=== PATIENT | female | born 1990 | race Hispanic/Latino ===

== ENCOUNTER 2017-06-24 11:38 | Outpatient (CLI) | payer OTHER ==
[~2017-06-24] VITALS: Ht 162.6 cm; Wt 71.7 kg
[2017-06-24 13:04] VITALS: BP 124/87
== END 2017-06-24 12:05 | disposition home or self-care (01) ==
LOC: PREOP 11:38
PROVIDERS: ATTEND Surgery
DX: Z01.818 Encounter for other preprocedural examination (principal); Z11.2 Encounter for screening for other bacterial diseases; K40.90 Unilateral inguinal hernia, without obstruction or gangrene, not specified as recurrent
CPT/HCPCS: 87081

== ENCOUNTER → 2017-07-01 | Day surgery (SDC) | payer SELFPAY ==
[~2017-07-01] VITALS: Ht 162.6 cm; Wt 71.7 kg
[~2017-07-01] MED LIST: BUPIVACAINE 0.5% 30 ML (SENSORCAINE) VIAL ONE; DEXAMETHASONE 10 MG/ML (DECADRON) 1 ML VIAL ONE; DOCU-143 PO; GLYCOPYRROLATE 0.2 MG/ML (ROBINUL) 2 ML VIAL ONE; HYDR-3812 PO; HYDROcodone/APAP 5 MG/325 MG (LORTAB) TAB PO PRN; HYDROmorphone (DILAUDID) 2 MG/ML VIAL IVP PRN; LACTATED RINGERS 1,000 ML IV PRN; LIDOCAINE 1% INJ 20 ML (XYLOCAINE) VIAL ONE; LIDOCAINE PF 2% 5 ML (XYLOCAINE) VIAL ONE; MEPERIDINE (DEMEROL) INJ 50 MG/ML IVP PRN; MIDAZOLAM 2 MG/2 ML (VERSED) VIAL ONE; NEOSTIGMINE (BLOXIVERZ ) 1 MG/1ML 10 ML VIAL ONE; ONDANSETRON 4 MG/2 ML (SDV) Z0FRAN IVP PRN; ONDANSETRON 4 MG/2 ML (SDV) Z0FRAN ONE; ROCURONIUM 50 MG/5 ML (ZEMURON) VIAL IV ONE; SEVOFLURANE (ULTANE) 15 ML INHAL SOLN ONE; ceFAZolin 2 GM/50 ML NS 50 ML IV ONE; ceFAZolin 2 GM/NS 50 ML IV ONE; fentaNYL INJECTION 100 MCG/2 ML AMP ONE; proPOfol 200 MG/20 ML (DIPRIVAN) VIAL IV ONE
[2017-07-01 08:46] VITALS: BP 126/89
--- NOTE | 2017-07-01 09:18 | Progress Note-Pre Operative ---
Pre-Operative Progress Note H&P Reviewed The H&P was reviewed, patient examined and no changes noted. Date Seen by Provider: Jul 01, 2017 Time Seen by Provider: 08:30 Date H&P Reviewed: Jul 01, 2017 Time H&P Reviewed: 08:30 Pre-Operative Diagnosis: left inguinal hernia MARIMAR LINO DO Jul 01, 2017 09:18
--- NOTE | 2017-07-01 10:09 | Progress Note-Post Operative ---
Post-Operative Progess Note Surgeon (s)/Auto Battery Builder (s) Surgeon MARIMAR LINO DO Auto Battery Builder: Dr. Cuenca Pre-Operative Diagnosis left inguinal hernia Post-Operative Diagnosis indirect left inguinal hernia Procedure & Operative Findings Date of Procedure 07/01/17 Procedure Performed/Findings open left inguinal hernia repair c mesh Anesthesia Type general Estimated Blood Loss Estimated blood loss (mL): minimal Specimens/Packing Specimens Removed hernia sac MARIMAR LINO DO Jul 01, 2017 10:09
--- NOTE | 2017-07-01 10:12 | Discharge Inst-Simple/Standard ---
Discharge Inst-Standard Discharge Medications New, Converted or Re-Newed RX: RX on Chart Patient Instructions/Follow Up Plan of Care/Instructions/FU: 2-3 weeks [place] Activity as Tolerated: No Discharge Diet: Regular Diet Other Inst to Patient Follow up Appt: Make appointment for 2-3 week. Instructions: No lifting greater than 10 pounds. No strenuous activity. May shower in 24 hours, no tub bath or soaking. Use incentive spirometer at home as directed. No Smoking Skin/Wound Care: May remove bandages. You have special glue over incision it will fall off on its own. Symptoms to Report: Appetite Changes, Extremity Discoloration, Numbness/Tingling, Swelling Increased , Bleeding Excessive, Eyesight Changes, Pain Increased, Urine Color Change, Constipation(Persistent), Fever over 101 degree F, Pain/Pressure in chest, Urinating Difficulty, Cough Up/Vomit Blood, Heart Beat Irreg/Pounding, Pain/ Pressure in jaw, Vaginal Bleeding Increase, Cramps in feet or legs, Lightheadedness, Pain/Pressure in shoulder, Diarrhea(Persistent), Memory Changes Suddenly, Questions/Concerns, Weight gain consecutive days, Dizziness/ Fainting, Nausea/Vomiting, Shortness of Breath, Weight gain over 2 pounds If questions or concerns contact your physician Or seek help at emergency department. MARIMAR LINO DO Jul 01, 2017 10:12
[2017-07-01] MEDS: morphine INJ 10 MG/ML 1ML (SYR OR VIAL) IVP PRN ×2 (10:44→10:49)
--- NOTE | 2017-07-01 11:22 | Anesthesia-General Post-Op ---
General Patient Condition Mental Status/LOC: Same as Preop Cardiovascular: Satisfactory Nausea/Vomiting: Absent Respiratory: Satisfactory Pain: Controlled Complications: Absent Post Op Complications Complications None Follow Up Care/Instructions Patient Instructions None needed. Anesthesia/Patient Condition Patient Condition Patient is doing well, no complaints, stable vital signs, no apparent adverse anesthesia problems. No complications reported per nursing. D/C home per [facility] [place] Criteria: Yes MITCHELL RUBALCAVA DO Jul 01, 2017 11:22
[2017-07-01 11:40] VITALS: BP 122/91
[2017-07-01 12:10] VITALS: BP 120/83
[2017-07-01 12:45] VITALS: BP 121/84
[2017-07-01 13:00] VITALS: BP 121/84
--- NOTE | 2017-07-01 18:04 | OPERATIVE REPORT ---
DATE OF SERVICE: 07/01/2017 PREOPERATIVE DIAGNOSIS: Left inguinal hernia. POSTOPERATIVE DIAGNOSIS: Left indirect inguinal hernia. SURGEON: Marimar Valadez DO DEVELOPMENT AND PLANNING ENGINEER: Dr. Cuenca, assisted in retraction, dissection and closure. ESTIMATED BLOOD LOSS: Minimal. ANESTHESIA: General. INDICATIONS: The patient is a 27-year-old male with left inguinal hernia. He understands risks and benefits of procedure and wished to proceed with procedure. Consent was signed in the chart. PROCEDURE: The patient was taken to the operating suite, was prepped and draped in sterile fashion. Surgical pause was performed. The left groin incision was made in the left lower quadrant. Dissection was taken down to the external oblique which was then opened down through the external ring. The spermatic cord was then dissected around and a [place] drain was placed around it. There was a large hernia sac present, which was dissected off of the cord. A 2-0 Vicryl suture was then used to ligate the hernia sac and the hernia sac was then transected and reduced into the abdomen. There was no direct defect. The ProGrip mesh was then cut to size and secured at the pubic tubercle and then placed incorporating the mesh around the spermatic cord and then placed under the external oblique. The area was then irrigated with copious amounts of irrigation. Hemostasis was achieved. The external oblique was then closed using 3-0 Vicryl in a running fashion, recreating the external ring. Cal's fascia was then closed using 3-0 Vicryl. Skin was then closed using 4-0 monofilament. The area was then washed and dried. Dermabond was placed over the incision. The patient tolerated procedure well without any complications, was taken to recovery room in stable condition. Prior to incision, local anesthetic of 0.5% Marcaine and 1% lidocaine in a 50:50 ratio was used to anesthetize the area. The patient tolerated the procedure well without any complications and was taken to recovery room in stable condition. Job ID: [id number] DocumentID: [id number] Dictated Date: 07/01/2017 13:34:09 Table Games Dealer Date: 07/01/2017 18:02:58 Dictated By: MARIMAR VALADEZ DO
== END | disposition home or self-care (01) ==
LOC: SDC 07:57
PROVIDERS: ATTEND Surgery
DX: K40.90 Unilateral inguinal hernia, without obstruction or gangrene, not specified as recurrent (principal)